=== PATIENT | male | born 1955 | race Caucasian/White ===

== ENCOUNTER 2021-04-09 21:00 | Inpatient (IN) | payer MEDICARE, MEDICAID ==
[~2021-04-09] VITALS: Ht 167.6 cm; Wt 76.7 kg
[2021-04-09 21:00] VITALS: BP 140/76
[~2021-04-09 21:00] MED LIST: IBUP-2028 PO; LISI2.5T47 MT
[2021-04-09 22:00] VITALS: BP 140/76
[2021-04-09] MEDS ORDERED: ONDANSETRON HCL 4MG/2ML INJ IV PRN (23:00)
[2021-04-09] MEDS ORDERED: DEXTROSE 50% WATER 50ML SYRINGE IV PRN ×2 (23:00)
[2021-04-09] MEDS ORDERED: CLONIDINE 0.1MG TABLET PO PRN (23:45)
[2021-04-10] MEDS: BLOOD SUGAR DIAGNOSTIC STRIP TEST SCH ×4 (05:41→21:00)
[2021-04-10] MEDS: INSULIN LISPRO 100 UNITS/ML SUBCUT SCH ×4 (05:41→21:00)
[2021-04-10 06:55] LABS: CHLORIDE 106 mEq/L (98-107)
[2021-04-10 07:01] LABS: BASOPHILS % 0.7 % (0.0-2.0); EOSINOPHILS % 3.1 % (0.0-5.0); HEMATOCRIT. 30.6 % (42.0-52.0); HEMOGLOBIN. 10.7 g/dL (14.0-18.0); LYMPHOCYTES % 16.2 % (20.0-50.0); MEAN CORPUSCULAR HEMOGLOBIN 32.7 pg (28.0-32.0); MEAN CORPUSCULAR VOLUME 93.4 fL (80.0-94.0); MEAN PLATELET VOLUME 8.7 fl (7.4-10.4); MONOCYTES % 12.4 % (2.0-8.0); NEUTROPHILS % 67.6 % (40.0-76.0); PLATELET 197 x1000/uL (130-400); RED BLOOD CELL COUNT 3.28 mill/uL (4.7-6.1); RED CELL DISTRIBUTION WIDTH 14.5 % (11.6-14.6)
[2021-04-10 08:00] VITALS: BP 153/81
[2021-04-10] MEDS ORDERED: PNEUMOCOCCAL 23-VAL P-SAC VAC 0.5 ML IM ONE (08:00)
[2021-04-10] MEDS: AMLODIPINE 5MG TABLET PO SCH (09:19)
[2021-04-10] MEDS: FAMOTIDINE 20MG/2ML VIAL IV SCH (09:20)
[2021-04-10] MEDS: POLYETHYLENE GLYCOL 3350 (17GM) 1 DOSE PACK PO SCH (09:20)
[2021-04-10] MEDS: ENOXAPARIN 40MG/0.4ML SYR SUBCUT SCH (09:21)
[2021-04-10 12:00] VITALS: BP 142/78
[2021-04-10 16:04] VITALS: BP 136/74
[2021-04-10 20:00] VITALS: BP 137/70
[2021-04-11] MEDS: BLOOD SUGAR DIAGNOSTIC STRIP TEST SCH ×4 (05:48→21:00)
[2021-04-11] MEDS: INSULIN LISPRO 100 UNITS/ML SUBCUT SCH ×4 (05:49→21:00)
[2021-04-11 08:00] VITALS: BP 103/58
[2021-04-11] MEDS: FAMOTIDINE 20MG/2ML VIAL IV SCH (08:54)
[2021-04-11] MEDS: ENOXAPARIN 40MG/0.4ML SYR SUBCUT SCH (08:54)
[2021-04-11] MEDS: POLYETHYLENE GLYCOL 3350 (17GM) 1 DOSE PACK PO SCH (09:00)
[2021-04-11] MEDS: AMLODIPINE 5MG TABLET PO SCH (09:00)
[2021-04-11 09:23] LABS: CHLORIDE 109 mEq/L (98-107)
[2021-04-11 09:28] LABS: BASOPHILS % 0.9 % (0.0-2.0); EOSINOPHILS % 3.2 % (0.0-5.0); HEMATOCRIT. 30.5 % (42.0-52.0); HEMOGLOBIN. 10.5 g/dL (14.0-18.0); LYMPHOCYTES % 16.9 % (20.0-50.0); MEAN CORPUSCULAR HEMOGLOBIN 32.7 pg (28.0-32.0); MEAN PLATELET VOLUME 9.2 fl (7.4-10.4); MONOCYTES % 10.8 % (2.0-8.0); NEUTROPHILS % 68.2 % (40.0-76.0); PLATELET 224 x1000/uL (130-400); RED BLOOD CELL COUNT 3.21 mill/uL (4.7-6.1); RED CELL DISTRIBUTION WIDTH 15.1 % (11.6-14.6)
[2021-04-11 09:37] LABS: PHOSPHORUS 3.4 mg/dL (2.5-4.9)
[2021-04-11 09:43] LABS: TOTAL IRON BINDING CAPACITY 177 ug/dL (250-450)
[2021-04-11 10:57] LABS: PROSTRATE SPECIFIC AG TOTAL 0.71 ng/mL (0.0-4.0)
[2021-04-11 12:00] VITALS: BP 116/63
[2021-04-11] MEDS: MAGNESIUM OXIDE 400MG TABLET PO SCH ×2 (14:40→21:30)
[2021-04-11 16:00] VITALS: BP 112/65
[2021-04-11 20:00] VITALS: BP 150/58
[2021-04-11] MEDS: MAGNESIUM/ALUMINUM HYDROXIDE/SIMETHICONE 30ML UDC PO PRN ×2 (21:25→21:26)
[2021-04-12] MEDS: BLOOD SUGAR DIAGNOSTIC STRIP TEST SCH ×4 (06:30→21:00)
[2021-04-12] MEDS: INSULIN LISPRO 100 UNITS/ML SUBCUT SCH ×4 (07:23→21:00)
[2021-04-12 08:00] VITALS: BP 164/84
[2021-04-12] MEDS: ENOXAPARIN 40MG/0.4ML SYR SUBCUT SCH (08:19)
[2021-04-12] MEDS: FAMOTIDINE 20MG TABLET PO SCH (08:19)
[2021-04-12] MEDS: MAGNESIUM OXIDE 400MG TABLET PO SCH (08:19)
[2021-04-12] MEDS: DOCUSATE SODIUM 100MG CAPSULE PO PRN (08:19)
[2021-04-12] MEDS: AMLODIPINE 5MG TABLET PO SCH (08:20)
[2021-04-12 12:00] VITALS: BP 144/66
[2021-04-12 16:00] VITALS: BP 139/68
[2021-04-12 20:00] VITALS: BP 135/75
[2021-04-13] MEDS: BLOOD SUGAR DIAGNOSTIC STRIP TEST SCH ×4 (07:02→21:00)
[2021-04-13] MEDS: INSULIN LISPRO 100 UNITS/ML SUBCUT SCH ×4 (08:03→22:40)
[2021-04-13 08:06] VITALS: BP 157/75
[2021-04-13] MEDS: FAMOTIDINE 20MG TABLET PO SCH (08:16)
[2021-04-13] MEDS: AMLODIPINE 5MG TABLET PO SCH (08:16)
[2021-04-13] MEDS: ENOXAPARIN 40MG/0.4ML SYR SUBCUT SCH (08:17)
[2021-04-13] MEDS: ACETAMINOPHEN 325MG TABLET PO PRN (12:10)
[2021-04-13 21:16] VITALS: BP 156/78
[2021-04-14] MEDS: BLOOD SUGAR DIAGNOSTIC STRIP TEST SCH ×4 (06:33→21:00)
[2021-04-14 08:00] VITALS: BP 146/77
[2021-04-14] MEDS: INSULIN LISPRO 100 UNITS/ML SUBCUT SCH ×4 (09:00→21:00)
[2021-04-14] MEDS: AMLODIPINE 5MG TABLET PO SCH (09:22)
[2021-04-14] MEDS: FAMOTIDINE 20MG TABLET PO SCH (09:22)
[2021-04-14] MEDS: ENOXAPARIN 40MG/0.4ML SYR SUBCUT SCH (09:22)
[2021-04-14] MEDS: ACETAMINOPHEN 325MG TABLET PO PRN (14:42)
[2021-04-14] MEDS: LIDOCAINE 5% PATCH TOP SCH (16:31)
[2021-04-14 20:00] VITALS: BP 142/75
[2021-04-15] MEDS: BLOOD SUGAR DIAGNOSTIC STRIP TEST SCH ×4 (06:30→21:00)
[2021-04-15 07:23] LABS: BASOPHILS % 0.5 % (0.0-2.0); EOSINOPHILS % 2.5 % (0.0-5.0); HEMATOCRIT. 26.2 % (42.0-52.0); LYMPHOCYTES % 13.8 % (20.0-50.0); MEAN CORPUSCULAR HEMOGLOBIN 32.6 pg (28.0-32.0); MONOCYTES % 10.6 % (2.0-8.0); NEUTROPHILS % 72.6 % (40.0-76.0); PLATELET 226 x1000/uL (130-400); RED BLOOD CELL COUNT 2.75 mill/uL (4.7-6.1); RED CELL DISTRIBUTION WIDTH 14.9 % (11.6-14.6)
[2021-04-15 07:32] LABS: CHLORIDE 113 mEq/L (98-107)
[2021-04-15 08:00] VITALS: BP 138/64
[2021-04-15] MEDS: INSULIN LISPRO 100 UNITS/ML SUBCUT SCH ×4 (09:00→21:00)
[2021-04-15] MEDS: AMLODIPINE 5MG TABLET PO SCH (09:49)
[2021-04-15] MEDS: ENOXAPARIN 40MG/0.4ML SYR SUBCUT SCH (09:50)
[2021-04-15] MEDS: LIDOCAINE 5% PATCH TOP SCH (09:52)
[2021-04-15] MEDS: FAMOTIDINE 20MG TABLET PO SCH (16:32)
[2021-04-15 20:00] VITALS: BP 132/68
[2021-04-16] MEDS: BLOOD SUGAR DIAGNOSTIC STRIP TEST SCH ×4 (06:30→21:16)
[2021-04-16] MEDS: INSULIN LISPRO 100 UNITS/ML SUBCUT SCH ×4 (07:53→21:19)
[2021-04-16 08:00] VITALS: BP 98/64
[2021-04-16] MEDS: AMLODIPINE 5MG TABLET PO SCH (09:00)
[2021-04-16] MEDS: FAMOTIDINE 20MG TABLET PO SCH (09:15)
[2021-04-16] MEDS: LIDOCAINE 5% PATCH TOP SCH (09:15)
[2021-04-16] MEDS: DOCUSATE SODIUM 100MG CAPSULE PO PRN (09:15)
[2021-04-16] MEDS: ENOXAPARIN 40MG/0.4ML SYR SUBCUT SCH (09:20)
[2021-04-16 20:00] VITALS: BP 166/80
[2021-04-17] MEDS: BLOOD SUGAR DIAGNOSTIC STRIP TEST SCH ×4 (06:54→20:31)
[2021-04-17 08:00] VITALS: BP 141/68
[2021-04-17] MEDS: AMLODIPINE 5MG TABLET PO SCH (09:00)
[2021-04-17] MEDS: FAMOTIDINE 20MG TABLET PO SCH (09:00)
[2021-04-17] MEDS: INSULIN LISPRO 100 UNITS/ML SUBCUT SCH ×4 (09:00→20:31)
[2021-04-17] MEDS: DOCUSATE SODIUM 100MG CAPSULE PO PRN ×2 (09:01→16:13)
[2021-04-17] MEDS: ENOXAPARIN 40MG/0.4ML SYR SUBCUT SCH (09:02)
[2021-04-17] MEDS: LIDOCAINE 5% PATCH TOP SCH (09:05)
[2021-04-17] MEDS: ACETAMINOPHEN 325MG TABLET PO PRN (16:12)
[2021-04-17 20:00] VITALS: BP 126/73
[2021-04-18] MEDS: INSULIN LISPRO 100 UNITS/ML SUBCUT SCH ×4 (06:26→21:00)
[2021-04-18] MEDS: BLOOD SUGAR DIAGNOSTIC STRIP TEST SCH ×4 (06:26→21:55)
[2021-04-18 06:29] LABS: CHLORIDE 114 mEq/L (98-107)
[2021-04-18 07:15] LABS: BASOPHILS % 0.6 % (0.0-2.0); EOSINOPHILS % 3.3 % (0.0-5.0); HEMATOCRIT. 25.9 % (42.0-52.0); HEMOGLOBIN. 8.9 g/dL (14.0-18.0); LYMPHOCYTES % 17.1 % (20.0-50.0); MEAN CORPUSCULAR HEMOGLOBIN 32.6 pg (28.0-32.0); MEAN CORPUSCULAR VOLUME 94.8 fL (80.0-94.0); MEAN PLATELET VOLUME 9.3 fl (7.4-10.4); MONOCYTES % 10.9 % (2.0-8.0); NEUTROPHILS % 68.1 % (40.0-76.0); PLATELET 229 x1000/uL (130-400); RED BLOOD CELL COUNT 2.74 mill/uL (4.7-6.1); RED CELL DISTRIBUTION WIDTH 14.7 % (11.6-14.6)
[2021-04-18 08:00] VITALS: BP 139/73
[2021-04-18] MEDS: AMLODIPINE 5MG TABLET PO SCH (08:43)
[2021-04-18] MEDS: FAMOTIDINE 20MG TABLET PO SCH (08:43)
[2021-04-18] MEDS: LIDOCAINE 5% PATCH TOP SCH (08:44)
[2021-04-18] MEDS: ENOXAPARIN 40MG/0.4ML SYR SUBCUT SCH (08:44)
[2021-04-18] MEDS ORDERED: TRAMADOL 50MG TABLET PO PRN (11:30)
[2021-04-18 20:00] VITALS: BP 133/71
[2021-04-19] MEDS: BLOOD SUGAR DIAGNOSTIC STRIP TEST SCH ×4 (06:40→21:18)
[2021-04-19] MEDS: INSULIN LISPRO 100 UNITS/ML SUBCUT SCH ×4 (06:40→21:21)
[2021-04-19 07:56] VITALS: BP 149/75
[2021-04-19] MEDS: AMLODIPINE 5MG TABLET PO SCH (08:25)
[2021-04-19] MEDS: FAMOTIDINE 20MG TABLET PO SCH (08:25)
[2021-04-19] MEDS: ENOXAPARIN 40MG/0.4ML SYR SUBCUT SCH (08:25)
[2021-04-19] MEDS: LIDOCAINE 5% PATCH TOP SCH (08:26)
[2021-04-19] MEDS ORDERED: TRAM50TA3 PO (16:56)
[2021-04-19] MEDS ORDERED: AMLO5TAB88 PO (16:56)
[2021-04-19] MEDS ORDERED: METF-874 MT (16:56)
[2021-04-19 20:00] VITALS: BP_SYST 147; BP_DIAS 72; BP_DIAS 77
[2021-04-20] MEDS: BLOOD SUGAR DIAGNOSTIC STRIP TEST SCH ×2 (06:52→11:37)
[2021-04-20] MEDS: INSULIN LISPRO 100 UNITS/ML SUBCUT SCH ×2 (06:52→13:00)
[2021-04-20] MEDS: ENOXAPARIN 40MG/0.4ML SYR SUBCUT SCH (08:22)
[2021-04-20] MEDS: LIDOCAINE 5% PATCH TOP SCH (08:23)
[2021-04-20] MEDS: FAMOTIDINE 20MG TABLET PO SCH (08:23)
[2021-04-20] MEDS: AMLODIPINE 5MG TABLET PO SCH (08:24)
[2021-04-20 08:29] VITALS: BP 152/78
[2021-04-20 12:01] VITALS: BP 129/64
[2021-04-20 13:15] VITALS: BP 129/64
[2021-04-20 13:20] VITALS: BP 128/75
[2021-04-20 13:30] VITALS: BP 100/57
[2021-04-21 17:23] LABS: 25-HYDROXY VITAMIN D3 11 ng/mL (.)
== END 2021-04-20 15:35 | disposition home health service (06) | DRG 74 ==
LOC: UNDOADMIN 21:00 → 4WST 21:00
PROVIDERS: ADMIT Physical Medicine & Rehabilitation Spinal Cord Injury Medicine; ATTEND Internal Medicine Nephrology
DX: G62.1 Alcoholic polyneuropathy (principal); E44.0 Moderate protein-calorie malnutrition; E87.1 Hypo-osmolality and hyponatremia; N17.9 Acute kidney failure, unspecified; E11.42 Type 2 diabetes mellitus with diabetic polyneuropathy; D64.9 Anemia, unspecified; E87.6 Hypokalemia; E87.8 Other disorders of electrolyte and fluid balance, not elsewhere classified; F10.20 Alcohol dependence, uncomplicated; F39 Unspecified mood [affective] disorder; K76.0 Fatty (change of) liver, not elsewhere classified; N28.1 Cyst of kidney, acquired; R29.6 Repeated falls; R62.7 Adult failure to thrive; R26.89 Other abnormalities of gait and mobility; R53.81 Other malaise; Y90.9 Presence of alcohol in blood, level not specified; Z82.49 Family history of ischemic heart disease and other diseases of the circulatory system; Z68.27 Body mass index [BMI] 27.0-27.9, adult; Z79.899 Other long term (current) drug therapy
CPT/HCPCS: 36415; 71100; 80053; 82140; 82306; 82607; 82728; 82962; 83540; 83550; 83735; 84100; 84134; 84153; 84443; 85025; 90732; 93970; 97110; 97112; 97116; 97162; 97166; 97530; 97535; J1650; J1815; J3490; G0103

== ENCOUNTER 2022-06-03 10:36 | Inpatient (IN) | payer MEDICARE, MEDICAID ==
[~2022-06-03] VITALS: Ht 167.6 cm; Wt 61.7 kg
[~2022-06-03 10:36] MED LIST changes: +AMLO5TAB88 PO; -LISI2.5T47 MT; +METF-874 MT; +TRAM50TA3 PO
[2022-06-03 11:33] LABS: EOSINOPHILS % 0.5 % (0.0-5.0); HEMATOCRIT. 41.8 % (42.0-52.0); HEMOGLOBIN. 14.1 g/dL (14.0-18.0); MEAN CORPUSCULAR VOLUME 94.9 fL (80.0-94.0); MEAN PLATELET VOLUME 7.7 fl (7.4-10.4); NEUTROPHILS % 69.5 % (40.0-76.0); PLATELET 240 x1000/uL (130-400); RED CELL DISTRIBUTION WIDTH 15.3 % (11.6-14.6)
[2022-06-03 11:42] LABS: CHLORIDE 109 mEq/L (98-107)
[2022-06-03] MEDS ORDERED: KETOROLAC 30MG/ML VIAL IV ONE (12:00)
[2022-06-03] MEDS ORDERED: HYDRALAZINE 20MG/ML VIAL IV ONE (12:00)
[2022-06-03 12:07] LABS: INR 1.1; PROTHROMBIN TIME 11.4 sec (9.6-11.0)
[2022-06-03] MEDS ORDERED: ONDANSETRON HCL 4MG/2ML INJ IV ONE (12:15)
[2022-06-03] MEDS ORDERED: PIPERACILLIN/TAZ 3.375G PREMIX 50 ML IV ONE (12:30)
[2022-06-03] MEDS ORDERED: SODIUM CHLORIDE 0.9% 1000ML BAG (SEPSIS BOLUS) IV ONE (12:30)
[2022-06-03] MEDS ORDERED: VANCOMYCIN 1G PREMIX 200 ML IV ONE (12:30)
[2022-06-03 12:54] LABS: BG BASE EXCESS -9.4 mmol/L (-2.0-2.0); BG CARBOXYHEMOGLOBIN 0.3 % (0.5-1.5); BG DEOXYHEMOGLOBIN 2.2 % (0.0-5.0); BG FRACTION INSPIRED OXYGEN 21; BG HCO3 ACT 12.9 mmol/L (22.0-26.0); BG METHEMOGLOBIN 0.2 % (0.0-1.5); BG OXYGEN SATURATION 97.8 % (92.0-98.5); BG OXYHEMOGLOBIN 97.3 % (94.0-97.0); BG PCO2 20.8 mmHg (35.0-45.0); BG PH 7.411 (7.350-7.450); BG PO2 107.5 mmHg (75.0-100.0); BG SAMPLE SITE RIGHT RADIAL; BG TOTAL HEMOGLOBIN 13.5 g/dL (12.0-18.0); BG VENT MODE ROOM AIR
[2022-06-03 16:05] VITALS: BP 178/86
[2022-06-03] MEDS ORDERED: IPRATROPIUM/ALBUTEROL 0.5-3(2.5)MG/3ML NEB HHN PRN (16:45)
[2022-06-03] MEDS: HYDROCODONE/ACETAMINOPHEN 5/325MG TABLET PO PRN ×2 (17:29→22:21)
[2022-06-03] MEDS ORDERED: LEVOFLOXACIN 500MG PREMIX 100 ML IV NR (18:00)
[2022-06-03] MEDS ORDERED: METF-874 MT (18:35)
[2022-06-03] MEDS ORDERED: NALOXONE HCL 0.4MG/ML VIAL IV PRN (19:15)
[2022-06-03 20:00] VITALS: BP 220/111
[2022-06-03] MEDS: SODIUM BICARBONATE 100 MEQ in SODIUM CHLORIDE 0.45% 1,000 ML IV SCH (21:10)
[2022-06-03] MEDS: ONDANSETRON HCL 4MG/2ML INJ IV PRN (21:10)
[2022-06-03] MEDS: CLONIDINE 0.2MG TABLET PO PRN (22:22)
[2022-06-03 22:30] VITALS: BP 183/86
[2022-06-04] VITALS (8 sets, daily range): BP systolic 94–187; BP diastolic 46–84
[2022-06-04] MEDS: ACETAMINOPHEN 325MG TABLET PO PRN (01:15)
[2022-06-04] MEDS: ONDANSETRON HCL 4MG/2ML INJ IV PRN (05:09)
[2022-06-04] MEDS: CLONIDINE 0.2MG TABLET PO PRN (05:10)
[2022-06-04 07:52] LABS: HEMATOCRIT. 34.7 % (42.0-52.0); HEMOGLOBIN. 11.5 g/dL (14.0-18.0); MEAN CORPUSCULAR HEMOGLOBIN 32.6 pg (28.0-32.0); MEAN CORPUSCULAR VOLUME 98.1 fL (80.0-94.0); MEAN PLATELET VOLUME 8.2 fl (7.4-10.4); PLATELET 165 x1000/uL (130-400); RED BLOOD CELL COUNT 3.53 mill/uL (4.7-6.1)
[2022-06-04] MEDS: ASPIRIN 81MG TABLET PO SCH (08:12)
[2022-06-04 08:40] LABS: PLATELET ESTIMATE NORMAL
[2022-06-04] MEDS ORDERED: METFORMIN HCL 500MG TABLET PO SCH (09:00)
[2022-06-04] MEDS ORDERED: DEXTROSE 50% WATER 50ML SYRINGE IV PRN (10:00)
[2022-06-04] MEDS ORDERED: LIDOCAINE HCL/PF 1% 2ML VIAL ONE (11:00)
[2022-06-04 11:14] LABS: BG BASE EXCESS -6.6 mmol/L (-2.0-2.0); BG CARBOXYHEMOGLOBIN 0.1 % (0.5-1.5); BG DEOXYHEMOGLOBIN 3.3 % (0.0-5.0); BG HCO3 ACT 16.4 mmol/L (22.0-26.0); BG METHEMOGLOBIN 1.1 % (0.0-1.5); BG OXYGEN SATURATION 96.7 % (92.0-98.5); BG OXYHEMOGLOBIN 95.5 % (94.0-97.0); BG PCO2 25.8 mmHg (35.0-45.0); BG PO2 97.7 mmHg (75.0-100.0); BG SAMPLE SITE RIGHT RADIAL; BG TOTAL HEMOGLOBIN 11.7 g/dL (12.0-18.0); BG VENT MODE ROOM AIR
[2022-06-04] MEDS: SODIUM BICARBONATE 100 MEQ in SODIUM CHLORIDE 0.45% 1,000 ML IV SCH (12:27)
[2022-06-04] MEDS: BLOOD SUGAR DIAGNOSTIC STRIP TEST SCH ×3 (12:27→21:16)
[2022-06-04] MEDS: INSULIN LISPRO 100 UNITS/ML SUBCUT SCH ×3 (12:27→21:17)
[2022-06-04 12:29] LABS: T4 FREE 1.14 ng/dL (0.76-1.46)
[2022-06-04 16:40] LABS: CREATINE KINASE MB FRACTION 4.1 ng/mL (0.5-3.6)
[2022-06-04] MEDS ORDERED: LEVOFLOXACIN 250MG PREMIX 50 ML IV SCH (18:00)
[2022-06-04] MEDS: HYDROCODONE/ACETAMINOPHEN 5/325MG TABLET PO PRN (21:17)
[2022-06-05] VITALS: BP 123/64
[2022-06-05 00:30] LABS: CREATINE KINASE MB FRACTION 2.8 ng/mL (0.5-3.6)
[2022-06-05 04:00] VITALS: BP 161/80
[2022-06-05] MEDS: CLONIDINE 0.2MG TABLET PO PRN (05:15)
[2022-06-05] MEDS: HYDROCODONE/ACETAMINOPHEN 5/325MG TABLET PO PRN ×2 (05:15→09:46)
[2022-06-05] MEDS: SODIUM BICARBONATE 100 MEQ in SODIUM CHLORIDE 0.45% 1,000 ML IV SCH (06:11)
[2022-06-05 06:17] LABS: CREATINE KINASE MB FRACTION 2.4 ng/mL (0.5-3.6)
[2022-06-05] MEDS: BLOOD SUGAR DIAGNOSTIC STRIP TEST SCH ×4 (06:39→21:00)
[2022-06-05] MEDS: INSULIN LISPRO 100 UNITS/ML SUBCUT SCH ×4 (07:24→21:45)
[2022-06-05 08:00] VITALS: BP 153/58
[2022-06-05] MEDS: ASPIRIN 81MG TABLET PO SCH (08:44)
[2022-06-05] MEDS: DEXT 5%/0.45% NACL 1000ML 1,000 ML IV SCH ×2 (10:26→20:55)
[2022-06-05 11:23] LABS: PHOSPHORUS 2.3 mg/dL (2.5-4.9)
[2022-06-05 12:00] VITALS: BP 121/63
[2022-06-05 12:42] LABS: CLARITY URINE CLEAR (CLEAR); COLOR URINE DARK YELLOW (YELLOW); KETONES URINE 1+ (NEGATIVE); LEUKOCYTE ESTERASE URINE NEGATIVE (NEGATIVE); NITRITE URINE NEGATIVE (NEGATIVE); OCCULT BLOOD URINE NEGATIVE (NEGATIVE); PROTEIN URINE 3+ (NEGATIVE); SPECIFIC GRAVITY URINE 1.023 (1.005-1.030)
[2022-06-05] MEDS: ONDANSETRON HCL 4MG/2ML INJ IV PRN (14:29)
[2022-06-05 16:00] VITALS: BP 128/60
[2022-06-05 20:00] VITALS: BP 124/66
[2022-06-05] MEDS: HYDRALAZINE HCL 25MG TABLET PO SCH (21:46)
[2022-06-06] VITALS (7 sets, daily range): BP systolic 115–177; BP diastolic 58–90
[2022-06-06] MEDS: CLONIDINE 0.2MG TABLET PO PRN ×2 (01:54→12:33)
[2022-06-06] MEDS: DEXT 5%/0.45% NACL 1000ML 1,000 ML IV SCH ×2 (05:13→14:42)
[2022-06-06 06:15] LABS: BASOPHILS % 0.4 % (0.0-2.0); EOSINOPHILS % 2.8 % (0.0-5.0); HEMATOCRIT. 29.9 % (42.0-52.0); HEMOGLOBIN. 10.2 g/dL (14.0-18.0); MEAN CORPUSCULAR HEMOGLOBIN 32.7 pg (28.0-32.0); MEAN CORPUSCULAR VOLUME 95.7 fL (80.0-94.0); MEAN PLATELET VOLUME 8.4 fl (7.4-10.4); MONOCYTES % 9.7 % (2.0-8.0); NEUTROPHILS % 70.1 % (40.0-76.0); PLATELET 113 x1000/uL (130-400); RED BLOOD CELL COUNT 3.13 mill/uL (4.7-6.1); RED CELL DISTRIBUTION WIDTH 15.5 % (11.6-14.6)
[2022-06-06] MEDS: BLOOD SUGAR DIAGNOSTIC STRIP TEST SCH ×4 (07:40→21:17)
[2022-06-06] MEDS ORDERED: LEVOFLOXACIN 250MG PREMIX 50 ML IV SCH (09:00)
[2022-06-06] MEDS: ASPIRIN 81MG TABLET PO SCH (09:00)
[2022-06-06] MEDS: INSULIN LISPRO 100 UNITS/ML SUBCUT SCH ×4 (09:01→21:17)
[2022-06-06] MEDS: HYDRALAZINE HCL 25MG TABLET PO SCH ×2 (09:02→21:13)
[2022-06-06] MEDS: ACETAMINOPHEN 325MG TABLET PO PRN (09:06)
[2022-06-07] VITALS: BP 179/87
[2022-06-07] MEDS: DEXT 5%/0.45% NACL 1000ML 1,000 ML IV SCH ×3 (01:59→22:00)
[2022-06-07 04:00] VITALS: BP 160/86
[2022-06-07] MEDS: CLONIDINE 0.2MG TABLET PO PRN (04:37)
[2022-06-07 07:01] LABS: BASOPHILS % 0.4 % (0.0-2.0); EOSINOPHILS % 4.6 % (0.0-5.0); HEMOGLOBIN. 11.3 g/dL (14.0-18.0); LYMPHOCYTES % 16.6 % (20.0-50.0); MEAN CORPUSCULAR HEMOGLOBIN 32.7 pg (28.0-32.0); MEAN CORPUSCULAR VOLUME 95.9 fL (80.0-94.0); MEAN PLATELET VOLUME 8.8 fl (7.4-10.4); MONOCYTES % 12.1 % (2.0-8.0); NEUTROPHILS % 66.3 % (40.0-76.0); PLATELET 101 x1000/uL (130-400); RED BLOOD CELL COUNT 3.45 mill/uL (4.7-6.1); RED CELL DISTRIBUTION WIDTH 15.1 % (11.6-14.6)
[2022-06-07 07:02] LABS: HEPATITIS B SURFACE ANTIGEN NEGATIVE
[2022-06-07] MEDS: BLOOD SUGAR DIAGNOSTIC STRIP TEST SCH ×4 (07:46→21:10)
[2022-06-07] MEDS: INSULIN LISPRO 100 UNITS/ML SUBCUT SCH ×4 (07:47→21:10)
[2022-06-07 08:00] VITALS: BP 158/52
[2022-06-07] MEDS: HYDRALAZINE HCL 25MG TABLET PO SCH ×2 (09:27→21:15)
[2022-06-07] MEDS: ASPIRIN 81MG TABLET PO SCH (09:27)
[2022-06-07 12:00] VITALS: BP 103/57
[2022-06-07 16:00] VITALS: BP_SYST 112; BP_SYST 113; BP_DIAS 43; BP_DIAS 62
[2022-06-07 20:00] VITALS: BP 143/77
[2022-06-08] VITALS: BP 154/78
[2022-06-08 04:00] VITALS: BP 158/86
[2022-06-08 06:00] VITALS: BP 158/86
[2022-06-08 06:49] VITALS: BP 145/80
[2022-06-08] MEDS: BLOOD SUGAR DIAGNOSTIC STRIP TEST SCH (07:44)
[2022-06-08] MEDS: CLONIDINE 0.2MG TABLET PO PRN (07:49)
[2022-06-08] MEDS: INSULIN LISPRO 100 UNITS/ML SUBCUT SCH (08:10)
[2022-06-08] MEDS: HYDROCODONE/ACETAMINOPHEN 5/325MG TABLET PO PRN (08:48)
[2022-06-08 09:00] VITALS: BP 211/100
[2022-06-08] MEDS: ASPIRIN 81MG TABLET PO SCH (09:00)
[2022-06-08] MEDS: HYDRALAZINE HCL 25MG TABLET PO SCH (09:00)
[2022-06-08] MEDS ORDERED: LEVOFLOXACIN 250MG TABLET PO SCH (11:00)
== END 2022-06-08 10:40 | DRG 683 ==
LOC: ER 10:58 → MERGE 13:33 → 7WST 13:33 → EDBEDREQSVC 14:24 → EDBEDREQ 14:24 → ENRESERV 14:47
PROVIDERS: ADMIT Internal Medicine; ATTEND Internal Medicine
DX: N17.9 Acute kidney failure, unspecified (principal); E44.0 Moderate protein-calorie malnutrition; I13.0 Hypertensive heart and chronic kidney disease with heart failure and stage 1 through stage 4 chronic kidney disease, or unspecified chronic kidney disease; R65.10 Systemic inflammatory response syndrome (SIRS) of non-infectious origin without acute organ dysfunction; E87.2 Acidosis; E86.0 Dehydration; N18.30 Chronic kidney disease, stage 3 unspecified; D69.6 Thrombocytopenia, unspecified; E11.36 Type 2 diabetes mellitus with diabetic cataract; I25.10 Atherosclerotic heart disease of native coronary artery without angina pectoris; I48.91 Unspecified atrial fibrillation; I50.9 Heart failure, unspecified; K76.0 Fatty (change of) liver, not elsewhere classified; K80.20 Calculus of gallbladder without cholecystitis without obstruction; R74.01 Elevation of levels of liver transaminase levels; H53.8 Other visual disturbances; E11.22 Type 2 diabetes mellitus with diabetic chronic kidney disease; D64.9 Anemia, unspecified; E83.42 Hypomagnesemia; Z87.891 Personal history of nicotine dependence; Z91.81 History of falling; Z68.22 Body mass index [BMI] 22.0-22.9, adult; R26.9 Unspecified abnormalities of gait and mobility
CPT/HCPCS: 36415; 36600; 71045; 74176; 76770; 80048; 80053; 80061; 80076; 80320; 81003; 82375; 82550; 82553; 82570; 82575; 82805; 82962; 83036; 83605; 83735; 83880; 84100; 84145; 84300; 84439; 84443; 84484; 85025; 85379; 86803; 87340; 93005; 93306; 97162; 97166; 97530; 99291; C1893; J0360; J1815; J1885; J1956; J2405; J2543; J3370; J3490; J7030; G0480